=== PATIENT | female | born 1975 | race Caucasian/White ===

== ENCOUNTER 2016-09-30 16:32 | Emergency (ER) | payer MEDICARE, MEDICAID ==
[~2016-09-30] VITALS: Ht 162.6 cm; Wt 74.3 kg
[2016-09-30] MEDS ORDERED: ONDANSETRON ODT 4 MG PO ONE (17:00)
[2016-09-30 17:31] LABS: ASPARTATE AMINO TRANSFERASE 28 U/L (15-37); BLOOD UREA NITROGEN 15 mg/dL (7-18)
[2016-09-30] MEDS ORDERED: HYDROmorphone 1 MG/ML, 1ML ONE ×2 (17:57→19:40)
[2016-09-30] MEDS ORDERED: HYDROmorphone 1 MG/ML, 1ML IV ONE ×2 (18:00→20:00)
[2016-09-30] MEDS ORDERED: ONDANSETRON ODT 8 MG ONE (18:36)
[2016-09-30] MEDS ORDERED: OXYcodone/APAP 5/325MG TABLET ONE (19:40)
[2016-09-30 19:48] VITALS: BP 107/77
[2016-09-30] MEDS ORDERED: OXYcodone/APAP 5/325MG TABLET PO ONE (20:00)
== END 2016-09-30 19:55 | disposition home or self-care (01) ==
LOC: ED 19:49
DX: N83.202 Unspecified ovarian cyst, left side (principal)
CPT/HCPCS: 36415; 76830; 80053; 81003; 84703; 85025; 96374; 96376; 99285; J1170; Q0162

== ENCOUNTER 2017-02-09 13:38 | Emergency (ER) | payer MEDICARE, MEDICAID ==
[~2017-02-09] VITALS: Ht 162.6 cm; Wt 76.0 kg
[2017-02-09 13:40] VITALS: BP 124/78
[2017-02-09] MEDS ORDERED: KETOROLAC 30 MG/1 ML IM ONE (14:30)
[2017-02-09] MEDS ORDERED: KETOROLAC 30 MG/1 ML ONE (14:44)
== END 2017-02-09 15:42 | disposition home or self-care (01) ==
LOC: ED 15:20
DX: M72.2 Plantar fascial fibromatosis (principal); Z88.0 Allergy status to penicillin; Z88.1 Allergy status to other antibiotic agents
CPT/HCPCS: 73630; 96372; 99284; J1885

== ENCOUNTER → 2017-03-03 | Outpatient (CLI) | payer MEDICARE, MEDICAID ==
[~2017-03-03] MED LIST: CA C1TAB42 PO; FAMO20TA37 PO; FOLI0.8T2 PO; FURO-92 PO; MULT1TAB65 PO; ONDA4TAB10 PO; POTA20TA6 PO; RIFA550T4 PO; SPIR50TA2 PO; VITA10004 PO; VITA150T PO
[2017-03-03 09:02] LABS: ALANINE AMINOTRANSFERASE 31 U/L (12-78); ALBUMIN 3.3 g/dL (3.4-5.0); ANION GAP 7 mmol/L (5-15); CHLORIDE 112 mmol/L (98-107)
[2017-03-03 09:04] LABS: ALKALINE PHOSPHATASE 65 U/L (45-117); TOTAL PROTEIN 7.4 g/dL (6.4-8.2)
== END ==
LOC: STAR 08:02
PROVIDERS: ATTEND Obstetrics & Gynecology Female Pelvic Medicine and Reconstructive Surgery
DX: Z01.818 Encounter for other preprocedural examination (principal); N92.6 Irregular menstruation, unspecified; N94.6 Dysmenorrhea, unspecified; R10.2 Pelvic and perineal pain; N94.10 Unspecified dyspareunia
CPT/HCPCS: 36415; 80053

== ENCOUNTER 2017-03-08 09:17 | Day surgery (SDC) | payer MEDICARE, MEDICAID ==
[~2017-03-08] VITALS: Ht 162.6 cm; Wt 75.9 kg
[~2017-03-08 09:17] MED LIST changes: +BUPIVACAINE/PF 0.25% ONE
[2017-03-08] MEDS ORDERED: LACTATED RINGERS 1,000 ML IV SCH (09:47)
[2017-03-08 09:55] LABS: HCG UR SG 1.025 (1.003-1.030)
[2017-03-08 10:17] VITALS: BP 119/76
[2017-03-08] MEDS ORDERED: ROCURONIUM 10 MG/ML,10ML ONE ×2 (11:03)
[2017-03-08] MEDS ORDERED: LIDOCAINE-MPF 2% ,5ML ONE (11:03)
[2017-03-08] MEDS ORDERED: MIDAZOLAM 1 MG/ML, 2ML ONE (11:04)
[2017-03-08] MEDS ORDERED: FENTANYL PF 100 MCG/2ML ONE ×2 (11:05→12:49)
[2017-03-08] MEDS ORDERED: PROPOFOL 10 MG/ML, 20ML ONE (11:33)
[2017-03-08] MEDS ORDERED: CEFAZOLIN 1,000 MG ONE ×2 (11:35)
[2017-03-08] MEDS ORDERED: ONDANSETRON 2MG/ML, 2ML ONE (11:49)
[2017-03-08] MEDS ORDERED: DEXAMETHASONE 4 MG/ML, 1ML ONE ×2 (11:49)
[2017-03-08] MEDS ORDERED: GLYCOPYRROLATE 0.4 MG/2 ML, 2ML ONE (12:15)
[2017-03-08] MEDS ORDERED: NEOSTIGMINE 1 MG/ML, 10ML ONE (12:16)
[2017-03-08] MEDS ORDERED: hydrALAzine 20 MG/ML, 1ML IV PRN (12:30)
[2017-03-08] MEDS ORDERED: LABETALOL 5MG/ML, 20ML IV PRN (12:30)
[2017-03-08] MEDS ORDERED: PROMETHAZINE 25 MG/ML, 1ML IV PRN (12:30)
[2017-03-08] MEDS ORDERED: ONDANSETRON 2MG/ML, 2ML IVPush PRN (12:30)
[2017-03-08] MEDS ORDERED: ACETAMINOPHEN 325 MG TABLET PO PRN (12:30)
[2017-03-08] MEDS ORDERED: HYDROmorphone 1 MG/ML, 1ML IV PRN (12:30)
[2017-03-08] MEDS ORDERED: OXYcodone 5 MG/5 ML ORAL.SOL UDC PO PRN (12:30)
[2017-03-08] MEDS ORDERED: OXYcodone 5 MG/5 ML ORAL.SOL UDC ONE (12:50)
[2017-03-08] MEDS: FENTANYL PF 100 MCG/2ML IV PRN ×2 (12:52→13:09)
[2017-03-08] MEDS ORDERED: MEPERIDINE/PF 50 MG/ML ONE (13:10)
[2017-03-08] MEDS: MEPERIDINE/PF 25MG/0.5ML IVPush PRN ×2 (13:13→13:26)
== END 2017-03-08 15:45 ==
LOC: OUT 09:17
PROVIDERS: ATTEND Obstetrics & Gynecology Female Pelvic Medicine and Reconstructive Surgery
DX: N92.1 Excessive and frequent menstruation with irregular cycle (principal); N94.6 Dysmenorrhea, unspecified; N94.10 Unspecified dyspareunia; Z90.49 Acquired absence of other specified parts of digestive tract; D64.9 Anemia, unspecified; G43.909 Migraine, unspecified, not intractable, without status migrainosus
CPT/HCPCS: 58552; 81025; 88307; J0690; J1100; J2175; J2250; J2405; J2704; J2710; J3010; J3490; J7120